=== PATIENT | female | born 1985 | race African-American/Black ===

== ENCOUNTER 2022-12-15 12:51 | Emergency (ER) | payer OTHER ==
[2022-12-15 12:58] VITALS: BMI 36.8
[2022-12-15] MEDS ORDERED: ACETAMINOPHEN 500 MG TABLET (FP) PO ONE (14:57)
[2022-12-15] MEDS ORDERED: CYCLOBENZAPRINE HCL 10 MG TABLET (FP) PO ONE (14:57)
[2022-12-15] MEDS ORDERED: ACETAMINOPHEN 500 MG TABLET (FP) ONE (15:17)
[2022-12-15] MEDS ORDERED: CYCLOBENZAPRINE HCL 10 MG TABLET (FP) ONE (15:17)
[2022-12-15 15:43] VITALS: BP 128/72; PULSE 74; RESP 16; TEMP 98.1
== END 2022-12-15 15:44 | disposition home or self-care (01) ==
LOC: JER 12:51 → JERFT 12:51
DX: S93.402A Sprain of unspecified ligament of left ankle, initial encounter (principal); S80.02XA Contusion of left knee, initial encounter; M25.572 Pain in left ankle and joints of left foot; M25.562 Pain in left knee; M79.10 Myalgia, unspecified site; M25.512 Pain in left shoulder; W10.8XXA Fall (on) (from) other stairs and steps, initial encounter
CPT/HCPCS: 73030-TC-LT-FY; 73610-TC-LT-FY; 99284-25

== ENCOUNTER 2023-05-26 10:16 | Emergency (ER) | payer BC, OTHER ==
[2023-05-26 10:23] VITALS: BP 141/77; PULSE 82; RESP 20; TEMP 98.7; BMI 39.4
[2023-05-26] MEDS ORDERED: ALBUTEROL SO4 2.5/IPRATROPIUM 0.5 INH SOL 3 ML VIAL.NEB. NEB ONE ×2 (11:00→11:28)
[2023-05-26] MEDS: ALBUTEROL SO4 2.5/IPRATROPIUM 0.5 INH SOL 3 ML VIAL.NEB. NEB SCH (11:05)
[2023-05-26] MEDS: ALBUTEROL SO4 2.5/IPRATROPIUM 0.5 INH SOL 3 ML VIAL.NEB. NEB ONE (11:05)
[2023-05-26] MEDS ORDERED: DEXAMETHASONE SOD PHOSPHATE 10 MG/1 ML VIAL ONE (11:23)
[2023-05-26] MEDS: DEXAMETHASONE 4 MG TABLET (FP) PO ONE (11:23)
== END 2023-05-26 12:04 | disposition home or self-care (01) ==
LOC: JERFT 10:16
PROC: 3E0F7GC Introduction of Other Therapeutic Substance into Respiratory Tract, Via Natural or Artificial Opening (ICD-10-PCS; principal; 2023-05-26)
DX: R05.9 Cough, unspecified (principal); J45.901 Unspecified asthma with (acute) exacerbation; Z20.822 Contact with and (suspected) exposure to COVID-19
CPT/HCPCS: 71046-TC-FY; 87633; 93005; 93010; 94640; 99285-25

== ENCOUNTER 2023-06-01 19:08 | Emergency (ER) | payer BC ==
[2023-06-01 19:11] VITALS: BP 144/78; PULSE 75; RESP 20; TEMP 98.4; BMI 39.4
[2023-06-01] MEDS ORDERED: ACETAMINOPHEN 500 MG TABLET (FP) ONE (20:38)
[2023-06-01] MEDS ORDERED: DOXYCYCLINE HYCLATE 100 MG CAPSULE PO ONE (20:38)
[2023-06-01] MEDS: DOXYCYCLINE HYCLATE 100 MG CAPSULE PO ONE (20:41)
[2023-06-01] MEDS: ACETAMINOPHEN 500 MG TABLET (FP) PO ONE (20:41)
== END 2023-06-01 21:19 | disposition home or self-care (01) ==
LOC: JERFT 19:08
DX: H92.01 Otalgia, right ear (principal); H66.91 Otitis media, unspecified, right ear
CPT/HCPCS: 99283-25